=== PATIENT | male | born 1955 | race Caucasian/White ===

== ENCOUNTER 2016-03-19 10:01 | Emergency (ER) | payer MEDICARE, OTHER ==
[~2016-03-19] VITALS: Ht 188 cm; Wt 90.7 kg
[~2016-03-19 10:01] MED LIST: GEMF600T3; LISI10TA6; MECL-87 PO; METF-316; OME20GT; SIMVPOW2; WARF5INJ IV
[2016-03-19] MEDS ORDERED: SODIUM CHLORIDE 0.9% 1,000 ML IV ONE (11:00)
[2016-03-19 11:29] LABS: Urine Bilirubin Negative (Negative); Urine Blood Negative /uL (Negative); Urine Color Yellow (Yellow); Urine Ketone Negative (Negative); Urine Nitrite Negative (Negative); Urine RBC 1 /hpf (0 - 3); Urine Squamous Epithelial Cell FEW /hpf (<5); Urine Urobilinogen Normal (Negative)
[2016-03-19 11:31] LABS: Urine Glucose 2+ mg/dL (Normal)
[2016-03-19 11:42] LABS: Basophils # (auto) 0 uL; Basophils % (auto) 0.5 % (0.0-2.0); DEFINITIVE VIEW TRANSMISSION; Eosinophils # (auto) 0.1 uL
[2016-03-19 12:10] LABS: Albumin 3.6 g/dL (3.4-5.0); BUN/Creatinine Ratio 21.8; Bilirubin, Total 0.5 mg/dL (0.2-1.0); Calcium 8.5 mg/dL (8.5-10.1); Magnesium 1.8 mg/dL (1.6-2.6); Potassium 3.8 mmol/L (3.5-5.1); Total Protein 7.5 g/dL (6.4-8.2)
[2016-03-19 12:21] LABS: Eosinophils % (auto) 0.5 % (0.0-7.0); Hematocrit 37.2 % (41.0-53.0); Hemoglobin 11.1 g/dL (13.5-17.5); Lymphocytes % (auto) 20.6 % (10.0-50.0); Mean Corpuscular Hemoglobin 19.8 pg (28.0-32.0); Mean Platelet Volume 7.6 fL (7.4-10.4); Monocytes # (auto) 0.7 uL; Monocytes % (auto) 7.2 % (0.0-12.0); Neutrophils % (auto) 71.2 % (37.0-80.0); Platelet Count (auto) 272 10^3/uL (140-450); Red Cell Distribution Width 18.3 % (11.6-16.0); White Blood Cell 9.8 10^3/uL (4.4-10.8)
[2016-03-19 12:25] LABS: Partial Thromboplastin Time 34.1 sec (22.64-33.71)
[2016-03-19 13:03] LABS: INR 2.03 (0.9-1.15); Prothrombin Time 20.9 sec (9.37-12.3)
[2016-03-19 13:24] VITALS: BP 100/59
[2016-03-19 13:41] LABS: B-Type Natriuretic Peptide 47.44 pg/mL (0-100)
[2016-03-19 14:00] LABS: Temperature: 22.7 C (20.0-25.0)
[2016-03-19 14:06] LABS: Anisocytosis Moderate; Hypochromia Marked; Microcytosis Marked; Platelet Estimate Adequate
[2016-03-19 14:07] LABS: Burr Cells FEW; Ovalocytes MODERATE
== END 2016-03-19 13:38 | disposition home or self-care (01) ==
LOC: EDBD 10:01 → ER 10:08
DX: E86.0 Dehydration (principal); D53.9 Nutritional anemia, unspecified; G47.00 Insomnia, unspecified; E11.40 Type 2 diabetes mellitus with diabetic neuropathy, unspecified; E78.00 Pure hypercholesterolemia, unspecified; E78.5 Hyperlipidemia, unspecified; J45.909 Unspecified asthma, uncomplicated; I10 Essential (primary) hypertension; Z59.0 Homelessness; R40.1 Stupor
CPT/HCPCS: 36415; 70450; 71020; 80053; 81001; 82962; 83735; 83880; 84484; 85025; 85049; 85379; 85610; 85730; 93005; 94761; 96360

== ENCOUNTER 2017-07-25 09:12 | Inpatient (IN) | payer MEDICARE, OTHER ==
[~2017-07-25] VITALS: Ht 188 cm; Wt 85.2 kg
[~2017-07-25 09:12] MED LIST changes: -METF-316; +METF-372
[2017-07-25] MEDS ORDERED: SODIUM CHLORIDE 0.9% 500 ML IVB ONE (09:38)
[2017-07-25 10:35] LABS: Eosinophils # (auto) 0.1 uL; Hemoglobin 8.8 g/dL (13.5-17.5); Lymphocytes % (auto) 9.6 % (10.0-50.0); Neutrophils # (auto) 9.6 uL
[2017-07-25 10:36] LABS: Basophils # (auto) 0.2 uL; Basophils % (auto) 1.4 % (0.0-2.0); Hematocrit 29.1 % (41.0-53.0); Lymphocytes # (auto) 1.2 uL; Mean Corpuscular Hemoglobin 17.7 pg (28.0-32.0); Mean Corpuscular Hgb Conc. 30.2 g/dL (32.0-36.0); Mean Corpuscular Volume 58.7 fL (80.0-100.0); Monocytes % (auto) 8.1 % (0.0-12.0); Neutrophils % (auto) 79.9 % (37.0-80.0); Platelet Count (auto) 411 10^3/uL (140-450); Red Blood Cells 4.96 10^6/uL (4.5-5.90)
[2017-07-25 10:38] LABS: Red Cell Distribution Width 20.6 % (11.8-14.3)
[2017-07-25 10:57] LABS: Albumin 3.1 g/dL (3.4-5.0); BUN/Creatinine Ratio 15.2; Bilirubin, Total 0.3 mg/dL (0.2-1.0); Calcium 8.3 mg/dL (8.5-10.1); Magnesium 1.4 mg/dL (1.6-2.6); Potassium 3.8 mmol/L (3.5-5.1); Total Protein 7.8 g/dL (6.4-8.2)
[2017-07-25 12:47] LABS: Urine Bacteria NONE SEEN /hpf (None Seen); Urine Blood Negative /uL (Negative); Urine Specific Gravity 1.015 (1.001-1.035); Urine WBC 1 /hpf (0 - 3)
[2017-07-25] MEDS ORDERED: cefTRIAXone 1GM/10ml IVPUSH 10 ML IV ONE (13:00)
[2017-07-25] MEDS ORDERED: SODIUM CHLORIDE 0.9% 1,000 ML IV ONE (13:15)
[2017-07-25] MEDS ORDERED: DEXTROSE (50%) 50ML SYRG IV PRN (13:15)
[2017-07-25] MEDS ORDERED: MAGNESIUM SULFATE 1GM/100ML 100 ML IV ONE (13:15)
[2017-07-25] MEDS ORDERED: MECLIZINE HCL 25 MG TAB PO PRN (13:15)
[2017-07-25] MEDS ORDERED: SODIUM CHLORIDE 0.9% 1,000 ML IV SCH (13:16)
[2017-07-25] MEDS ORDERED: FAMOTIDINE 20 MG TAB PO ONE (13:30)
[2017-07-25] MEDS ORDERED: ASCORBIC ACID 500 MG TAB PO ONE (13:30)
[2017-07-25] MEDS ORDERED: ONDANSETRON HCL 4 MG/2 ML VIAL IV PRN (13:30)
[2017-07-25] MEDS ORDERED: PANTOPRAZOLE 40 MG TAB PO ONE (13:30)
[2017-07-25] MEDS ORDERED: LISINOPRIL 10 MG TAB PO ONE (13:30)
[2017-07-25] MEDS ORDERED: MULTIPLE VITAMIN TAB PO ONE (13:30)
[2017-07-25] MEDS ORDERED: DOCUSATE SOD 100 MG CAP PO PRN (13:30)
[2017-07-25] MEDS ORDERED: NITROGLYCERIN 0.4 MG SL TAB SL PRN (13:30)
[2017-07-25] MEDS ORDERED: MORPHINE SULFATE 8mg/ml INJ SDV IV PRN ×2 (13:30)
[2017-07-25 13:51] LABS: INR 1.02 (0.9-1.15); Partial Thromboplastin Time 30.5 sec (23.78-33.04); Prothrombin Time 10.9 sec (9.27-12.13)
[2017-07-25] MEDS: CLINDAMYCIN 300MG IV 50 ML IV SCH ×2 (14:05→21:31)
[2017-07-25] MEDS: SODIUM CHLORIDE 0.9% 1,000 ML IV SCH (15:25)
[2017-07-25] MEDS: ACETAMINOPHEN 325 MG TAB PO PRN ×2 (15:25→19:45)
[2017-07-25] MEDS ORDERED: EPOETIN ALFA 10,000 UNIT/1 ML VIAL SC ONE (16:30)
[2017-07-25 16:50] VITALS: BP_SYST 109; BP_SYST 128; BP_DIAS 69; BP_DIAS 71
[2017-07-25] MEDS: InsuLIN REG 1unit/0.01ml Soln (100units/ml) SC SCH ×2 (17:45→22:04)
[2017-07-25] MEDS: ACCU-CHEK COMFORT CURVE STRIP VI SCH ×2 (17:46→21:40)
[2017-07-25] MEDS: FERROUS SULFATE 325 MG TAB PO SCH (18:05)
[2017-07-25 18:06] LABS: % Iron Saturation 4.2 % (20-55)
[2017-07-25] MEDS: Boost Glucose Control 8 Ounces PO SCH (18:06)
[2017-07-25] MEDS: FAMOTIDINE 20 MG TAB PO SCH (21:29)
[2017-07-25] MEDS: ATORVASTATIN 20 MG TAB PO SCH (21:30)
[2017-07-25] MEDS: ASCORBIC ACID 500 MG TAB PO SCH (21:40)
[2017-07-25 21:46] VITALS: BP 123/66
[2017-07-26] MEDS: SODIUM CHLORIDE 0.9% 1,000 ML IV SCH ×2 (00:59→22:35)
[2017-07-26 05:42] VITALS: BP 117/71
[2017-07-26] MEDS: CLINDAMYCIN 300MG IV 50 ML IV SCH ×3 (06:06→22:34)
[2017-07-26] MEDS: ACCU-CHEK COMFORT CURVE STRIP VI SCH ×4 (06:06→22:35)
[2017-07-26] MEDS: InsuLIN REG 1unit/0.01ml Soln (100units/ml) SC SCH ×4 (06:12→22:35)
[2017-07-26 07:10] LABS: Basophils # (auto) 0.2 uL; Eosinophils # (auto) 0.2 uL; Hemoglobin 8.5 g/dL (13.5-17.5); Lymphocytes # (auto) 1.2 uL; Mean Corpuscular Hemoglobin 18.3 pg (28.0-32.0); Monocytes # (auto) 0.5 uL; Neutrophils % (auto) 73.1 % (37.0-80.0)
[2017-07-26 07:12] LABS: Basophils % (auto) 2.3 % (0.0-2.0); Eosinophils % (auto) 2.3 % (0.0-7.0); Hematocrit 27.4 % (41.0-53.0); Lymphocytes % (auto) 15.2 % (10.0-50.0); Mean Corpuscular Hgb Conc. 31.1 g/dL (32.0-36.0); Mean Corpuscular Volume 58.9 fL (80.0-100.0); Monocytes % (auto) 7.1 % (0.0-12.0); Neutrophils # (auto) 5.6 uL; Platelet Count (auto) 384 10^3/uL (140-450); Red Blood Cells 4.65 10^6/uL (4.5-5.90); Red Cell Distribution Width 20.6 % (11.8-14.3); White Blood Cell 7.6 10^3/uL (4.4-10.8)
[2017-07-26 07:26] LABS: INR 1.03 (0.9-1.15); Partial Thromboplastin Time 30.1 sec (23.78-33.04)
[2017-07-26 07:32] LABS: Albumin 2.9 g/dL (3.4-5.0); BUN/Creatinine Ratio 10.6; Bilirubin, Total 0.4 mg/dL (0.2-1.0); Calcium 8.4 mg/dL (8.5-10.1); Potassium 3.6 mmol/L (3.5-5.1); Total Protein 7.3 g/dL (6.4-8.2)
[2017-07-26 08:00] VITALS: BP 155/79
[2017-07-26] MEDS: ZINC SULFATE 220 MG CAP PO SCH (09:54)
[2017-07-26] MEDS: FAMOTIDINE 20 MG TAB PO SCH ×2 (09:54→22:34)
[2017-07-26] MEDS: PANTOPRAZOLE 40 MG TAB PO SCH (09:54)
[2017-07-26] MEDS: FERROUS SULFATE 325 MG TAB PO SCH ×3 (09:54→18:02)
[2017-07-26] MEDS: ASCORBIC ACID 500 MG TAB PO SCH ×2 (09:54→22:35)
[2017-07-26] MEDS: MULTIPLE VITAMIN TAB PO SCH (09:55)
[2017-07-26] MEDS: Boost Glucose Control 8 Ounces PO SCH ×3 (09:58→18:02)
[2017-07-26] MEDS ORDERED: LISINOPRIL 10 MG TAB PO SCH (10:00)
[2017-07-26 11:45] LABS: Free T4 (Free Thyroxine) 1.1 ng/dL (0.89-1.76)
[2017-07-26 12:00] VITALS: BP 153/90
[2017-07-26] MEDS ORDERED: LISINOPRIL 10 MG TAB PO ONE (16:00)
[2017-07-26 17:00] VITALS: BP 123/63
[2017-07-26] MEDS ORDERED: WARFARIN SODIUM 5 MG TAB PO ONE (17:00)
[2017-07-26] MEDS: cefTRIAXone 1GM/10ml IVPUSH 10 ML IV SCH (17:39)
[2017-07-26] MEDS: ACETAMINOPHEN 325 MG TAB PO PRN (17:55)
[2017-07-26 21:58] VITALS: BP 120/64
[2017-07-26] MEDS: ATORVASTATIN 20 MG TAB PO SCH (22:34)
[2017-07-27] MEDS: ACETAMINOPHEN 325 MG TAB PO PRN ×2 (00:35→21:30)
[2017-07-27 05:00] VITALS: BP 130/89
[2017-07-27] MEDS: ACCU-CHEK COMFORT CURVE STRIP VI SCH ×4 (06:27→21:31)
[2017-07-27] MEDS: CLINDAMYCIN 300MG IV 50 ML IV SCH ×3 (06:27→21:29)
[2017-07-27] MEDS: InsuLIN REG 1unit/0.01ml Soln (100units/ml) SC SCH ×4 (06:27→21:46)
[2017-07-27 06:28] LABS: Basophils # (auto) 0.1 uL; Eosinophils # (auto) 0.2 uL; Lymphocytes # (auto) 1.5 uL; Monocytes # (auto) 0.6 uL; Nucleated Red Blood Cells % 0.1 %
[2017-07-27 06:29] LABS: Basophils % (auto) 1.2 % (0.0-2.0); Eosinophils % (auto) 2.9 % (0.0-7.0); Hemoglobin 8.7 g/dL (13.5-17.5); Mean Corpuscular Hemoglobin 18.3 pg (28.0-32.0); Monocytes % (auto) 7.8 % (0.0-12.0); Neutrophils % (auto) 68.1 % (37.0-80.0); Platelet Count (auto) 406 10^3/uL (140-450); Red Blood Cells 4.74 10^6/uL (4.5-5.90); White Blood Cell 7.3 10^3/uL (4.4-10.8)
[2017-07-27 06:33] LABS: Red Cell Distribution Width 20.5 % (11.8-14.3)
[2017-07-27 06:38] LABS: INR 1.07 (0.9-1.15); Prothrombin Time 11.4 sec (9.27-12.13)
[2017-07-27 06:51] LABS: Albumin 2.9 g/dL (3.4-5.0); BUN/Creatinine Ratio 7.8; Bilirubin, Total 0.3 mg/dL (0.2-1.0); Calcium 8.7 mg/dL (8.5-10.1); Magnesium 1.7 mg/dL (1.6-2.6); Potassium 3.6 mmol/L (3.5-5.1); Total Protein 7.2 g/dL (6.4-8.2)
[2017-07-27 08:00] VITALS: BP 133/72
[2017-07-27] MEDS: Boost Glucose Control 8 Ounces PO SCH ×3 (08:00→18:00)
[2017-07-27] MEDS: FERROUS SULFATE 325 MG TAB PO SCH ×3 (08:21→17:46)
[2017-07-27] MEDS: FAMOTIDINE 20 MG TAB PO SCH ×2 (10:40→21:30)
[2017-07-27] MEDS: ASCORBIC ACID 500 MG TAB PO SCH ×2 (10:40→21:30)
[2017-07-27] MEDS: ZINC SULFATE 220 MG CAP PO SCH (10:40)
[2017-07-27] MEDS: MULTIPLE VITAMIN TAB PO SCH (10:40)
[2017-07-27] MEDS: cefTRIAXone 1GM/10ml IVPUSH 10 ML IV SCH (10:40)
[2017-07-27] MEDS: PANTOPRAZOLE 40 MG TAB PO SCH (10:40)
[2017-07-27] MEDS: LISINOPRIL 20 MG TAB PO SCH (10:41)
[2017-07-27 13:00] VITALS: BP 138/83
[2017-07-27] MEDS ORDERED: MAGNESIUM SULFATE 1GM/100ML 100 ML IV ONE (14:00)
[2017-07-27] MEDS ORDERED: GOLYTELY 4L KIT PO ONE (14:15)
[2017-07-27] MEDS: SODIUM CHLORIDE 0.9% 1,000 ML IV SCH (14:34)
[2017-07-27] MEDS ORDERED: WARFARIN SODIUM 5 MG TAB PO ONE (17:00)
[2017-07-27 17:02] VITALS: BP 161/88
[2017-07-27] MEDS: HYDROcodone-ACET 5/325MG TAB PO PRN (19:36)
[2017-07-27] MEDS: ATORVASTATIN 20 MG TAB PO SCH (21:30)
[2017-07-27 22:00] VITALS: BP 140/72
[2017-07-27] MEDS: TEMAZEPAM 15 MG CAP PO PRN (23:30)
[2017-07-28 05:00] VITALS: BP 134/71
[2017-07-28] MEDS ORDERED: GOLYTELY 4L KIT PO ONE (06:00)
[2017-07-28] MEDS: CLINDAMYCIN 300MG IV 50 ML IV SCH (06:22)
[2017-07-28 06:27] LABS: Hemoglobin 8.3 g/dL (13.5-17.5)
[2017-07-28 06:31] LABS: Hematocrit 26.8 % (41.0-53.0)
[2017-07-28 06:37] LABS: INR 1.07 (0.9-1.15); Prothrombin Time 11.4 sec (9.27-12.13)
[2017-07-28 06:40] LABS: Albumin 2.8 g/dL (3.4-5.0); Calcium 8.5 mg/dL (8.5-10.1); Potassium 3.4 mmol/L (3.5-5.1)
[2017-07-28 06:44] LABS: BUN/Creatinine Ratio 12.4; Bilirubin, Total 0.3 mg/dL (0.2-1.0); Total Protein 6.9 g/dL (6.4-8.2)
[2017-07-28] MEDS: InsuLIN REG 1unit/0.01ml Soln (100units/ml) SC SCH ×4 (07:00→22:24)
[2017-07-28] MEDS: ACCU-CHEK COMFORT CURVE STRIP VI SCH ×4 (07:00→22:13)
[2017-07-28 08:00] VITALS: BP 146/87
[2017-07-28] MEDS: FERROUS SULFATE 325 MG TAB PO SCH ×3 (08:00→17:42)
[2017-07-28] MEDS: Boost Glucose Control 8 Ounces PO SCH ×3 (08:00→18:00)
[2017-07-28] MEDS: SODIUM CHLORIDE 0.9% 1,000 ML IV SCH (08:15)
[2017-07-28 09:00] VITALS: BP 146/87
[2017-07-28] MEDS: LISINOPRIL 20 MG TAB PO SCH (10:00)
[2017-07-28] MEDS: PANTOPRAZOLE 40 MG TAB PO SCH (10:00)
[2017-07-28] MEDS: ZINC SULFATE 220 MG CAP PO SCH (10:00)
[2017-07-28] MEDS: MULTIPLE VITAMIN TAB PO SCH (10:00)
[2017-07-28] MEDS: ASCORBIC ACID 500 MG TAB PO SCH ×2 (10:00→22:12)
[2017-07-28] MEDS: FAMOTIDINE 20 MG TAB PO SCH ×2 (10:00→22:11)
[2017-07-28] MEDS ORDERED: POTASSIUM CHL 20 Meq TABLET PO ONE (10:45)
[2017-07-28] MEDS: cefTRIAXone 1GM/10ml IVPUSH 10 ML IV SCH (11:26)
[2017-07-28] MEDS ORDERED: LIDOCAINE VISCOUS 2% 15ML UD ONE (12:22)
[2017-07-28] MEDS ORDERED: SODIUM CHLORIDE LOCK 10 ML ONE (12:22)
[2017-07-28] MEDS ORDERED: diphenhdrAMINE HCL 50 MG/1 ML VL ONE (12:23)
[2017-07-28] MEDS: fentaNYL CITRATE 100 MCG/2 ML VL ONE ×2 (12:23→12:28)
[2017-07-28] MEDS: MIDAZOLAM HCL 5 MG/ML-1ML VIAL ONE ×2 (12:23→12:28)
[2017-07-28 12:30] VITALS: BP 139/67
[2017-07-28] MEDS: CLINDAMYCIN 600MG IV 50 ML IV SCH ×2 (14:58→22:11)
[2017-07-28] MEDS ORDERED: WARFARIN SODIUM 2.5 MG TAB PO ONE (17:00)
[2017-07-28 17:09] VITALS: BP 126/79
[2017-07-28 22:04] VITALS: BP 135/77
[2017-07-28] MEDS: ATORVASTATIN 20 MG TAB PO SCH (22:12)
[2017-07-29] MEDS: SODIUM CHLORIDE 0.9% 1,000 ML IV SCH (04:42)
[2017-07-29 04:52] VITALS: BP 140/80
[2017-07-29] MEDS: HYDROcodone-ACET 5/325MG TAB PO PRN (05:20)
[2017-07-29] MEDS: ACCU-CHEK COMFORT CURVE STRIP VI SCH ×4 (05:59→21:00)
[2017-07-29] MEDS: CLINDAMYCIN 600MG IV 50 ML IV SCH ×3 (05:59→20:58)
[2017-07-29] MEDS: InsuLIN REG 1unit/0.01ml Soln (100units/ml) SC SCH ×4 (05:59→21:07)
[2017-07-29 07:32] LABS: INR 1.16 (0.9-1.15); Partial Thromboplastin Time 28.7 sec (23.78-33.04); Prothrombin Time 12.3 sec (9.27-12.13)
[2017-07-29 08:00] VITALS: BP 127/81
[2017-07-29] MEDS: Boost Glucose Control 8 Ounces PO SCH ×3 (08:00→18:00)
[2017-07-29 08:30] VITALS: BP 127/81
[2017-07-29] MEDS: ZINC SULFATE 220 MG CAP PO SCH (11:47)
[2017-07-29] MEDS: ASCORBIC ACID 500 MG TAB PO SCH ×2 (11:47→20:58)
[2017-07-29] MEDS: MULTIPLE VITAMIN TAB PO SCH (11:47)
[2017-07-29] MEDS: FAMOTIDINE 20 MG TAB PO SCH ×2 (11:47→21:00)
[2017-07-29] MEDS: PANTOPRAZOLE 40 MG TAB PO SCH (11:47)
[2017-07-29] MEDS: FERROUS SULFATE 325 MG TAB PO SCH ×3 (11:47→19:00)
[2017-07-29] MEDS: LISINOPRIL 20 MG TAB PO SCH (11:57)
[2017-07-29 12:02] VITALS: BP 184/78
[2017-07-29] MEDS ORDERED: WARFARIN SODIUM 10 MG TAB PO ONE (17:00)
[2017-07-29] MEDS ORDERED: GLIP-116 PO (17:02)
[2017-07-29] MEDS ORDERED: WARF5TAB71 PO (17:02)
[2017-07-29] MEDS ORDERED: DULO60CA PO (17:02)
[2017-07-29] MEDS ORDERED: MULT-228 PO (17:02)
[2017-07-29] MEDS ORDERED: GABA300C10 PO (17:02)
[2017-07-29] MEDS ORDERED: ACET1CAP14 PO (17:02)
[2017-07-29] MEDS ORDERED: TAMS0.4C36 PO (17:02)
[2017-07-29] MEDS ORDERED: METO25TA5 PO (17:02)
[2017-07-29] MEDS ORDERED: LISI-275 PO (17:02)
[2017-07-29 17:06] VITALS: BP 136/67
[2017-07-29] MEDS: ACETAMINOPHEN 325 MG TAB PO PRN (20:59)
[2017-07-29] MEDS: ATORVASTATIN 20 MG TAB PO SCH (20:59)
[2017-07-29 22:00] VITALS: BP 134/80
[2017-07-29] MEDS: TEMAZEPAM 15 MG CAP PO PRN (23:29)
[2017-07-30] MEDS: SODIUM CHLORIDE 0.9% 1,000 ML IV SCH (00:01)
[2017-07-30 05:00] VITALS: BP 126/82
[2017-07-30] MEDS: HYDROcodone-ACET 5/325MG TAB PO PRN (05:14)
[2017-07-30] MEDS: ACCU-CHEK COMFORT CURVE STRIP VI SCH ×2 (06:03→12:02)
[2017-07-30] MEDS: CLINDAMYCIN 600MG IV 50 ML IV SCH (06:03)
[2017-07-30] MEDS: InsuLIN REG 1unit/0.01ml Soln (100units/ml) SC SCH ×2 (06:04→12:03)
[2017-07-30 06:17] LABS: INR 1.31 (0.9-1.15); Partial Thromboplastin Time 29.9 sec (23.78-33.04); Prothrombin Time 13.8 sec (9.27-12.13)
[2017-07-30 06:23] LABS: Potassium 3.7 mmol/L (3.5-5.1)
[2017-07-30 06:25] LABS: BUN/Creatinine Ratio 15.2; Calcium 8.8 mg/dL (8.5-10.1); Magnesium 1.8 mg/dL (1.6-2.6)
[2017-07-30 08:00] VITALS: BP 130/77
[2017-07-30] MEDS: Boost Glucose Control 8 Ounces PO SCH ×2 (08:00→12:01)
[2017-07-30 08:13] VITALS: BP 130/77
[2017-07-30] MEDS: FERROUS SULFATE 325 MG TAB PO SCH ×2 (09:10→12:00)
[2017-07-30] MEDS: PANTOPRAZOLE 40 MG TAB PO SCH (09:11)
[2017-07-30] MEDS: FAMOTIDINE 20 MG TAB PO SCH (09:11)
[2017-07-30] MEDS: MULTIPLE VITAMIN TAB PO SCH (09:11)
[2017-07-30] MEDS: ZINC SULFATE 220 MG CAP PO SCH (09:11)
[2017-07-30] MEDS: ASCORBIC ACID 500 MG TAB PO SCH (09:11)
[2017-07-30] MEDS: LISINOPRIL 20 MG TAB PO SCH (09:12)
[2017-07-30] MEDS ORDERED: IODIXANOL 320MG/ML 100ML BTL IV ONE (10:23)
[2017-07-30] MEDS ORDERED: LIDOCAINE 2%HCL (LOCAL ANESTH.) INJ 20ML MDV ONE (10:23)
[2017-07-30] MEDS ORDERED: FER325T PO (11:01)
[2017-07-30] MEDS ORDERED: CLIN1CAP4 PO (11:01)
[2017-07-30] MEDS ORDERED: SACC250C PO (11:01)
[2017-07-30] MEDS ORDERED: WARFARIN SODIUM 5 MG TAB PO ONE (17:00)
== END 2017-07-30 13:08 | disposition home health service (06) | DRG 872 ==
LOC: EDBD 09:12 → ER 09:12 → TELE 09:13 → TELE-CENTR 14:40
PROVIDERS: ADMIT Internal Medicine; ATTEND Internal Medicine
PROC: 0DB68ZX Excision of Stomach, Via Natural or Artificial Opening Endoscopic, Diagnostic (ICD-10-PCS; 2017-07-28)
PROC: 0DB48ZX Excision of Esophagogastric Junction, Via Natural or Artificial Opening Endoscopic, Diagnostic (ICD-10-PCS; principal; 2017-07-28 12:21)
DX: A41.9 Sepsis, unspecified organism (principal); E11.21 Type 2 diabetes mellitus with diabetic nephropathy; E11.42 Type 2 diabetes mellitus with diabetic polyneuropathy; E44.0 Moderate protein-calorie malnutrition; N13.2 Hydronephrosis with renal and ureteral calculous obstruction; E83.42 Hypomagnesemia; D50.9 Iron deficiency anemia, unspecified; E11.22 Type 2 diabetes mellitus with diabetic chronic kidney disease; E11.621 Type 2 diabetes mellitus with foot ulcer; E78.5 Hyperlipidemia, unspecified; E83.51 Hypocalcemia; I12.9 Hypertensive chronic kidney disease with stage 1 through stage 4 chronic kidney disease, or unspecified chronic kidney disease; K31.7 Polyp of stomach and duodenum; K40.20 Bilateral inguinal hernia, without obstruction or gangrene, not specified as recurrent; L97.519 Non-pressure chronic ulcer of other part of right foot with unspecified severity; M19.012 Primary osteoarthritis, left shoulder; N18.2 Chronic kidney disease, stage 2 (mild); Z59.0 Homelessness; Z79.01 Long term (current) use of anticoagulants; Z79.899 Other long term (current) drug therapy; Z80.1 Family history of malignant neoplasm of trachea, bronchus and lung; Z82.49 Family history of ischemic heart disease and other diseases of the circulatory system; Z82.5 Family history of asthma and other chronic lower respiratory diseases; Z83.3 Family history of diabetes mellitus; Z85.038 Personal history of other malignant neoplasm of large intestine; Z86.010 Personal history of colon polyps; Z86.14 Personal history of Methicillin resistant Staphylococcus aureus infection; Z89.431 Acquired absence of right foot; Z89.421 Acquired absence of other right toe(s); Z93.3 Colostomy status; Z93.6 Other artificial openings of urinary tract status; Z95.2 Presence of prosthetic heart valve; Z88.0 Allergy status to penicillin; Z68.24 Body mass index [BMI] 24.0-24.9, adult
CPT/HCPCS: 36415; 71046; 73200; 73630; 74176; 78315; 80048; 80053; 80061; 81001; 82150; 82607; 82668; 82728; 82962; 83010; 83036; 83540; 83550; 83605; 83615; 83690; 83735; 84439; 84443; 85014; 85018; 85025; 85045; 85610; 85652; 85730; 86225; 86235; 86850; 86870; 86880; 86885; 86900; 86901; 86905; 86906; 86971; 87040; 87077; 87081; 87186; 87205; 93005; 93306; 93926; 94761; 96374; 97163; J0885; J1815; J2250; J3490; Q9967

== ENCOUNTER 2017-09-30 18:19 | Emergency (ER) | payer MEDICARE, OTHER ==
[~2017-09-30] VITALS: Ht 15.2 cm; Wt 6.0 kg
[~2017-09-30 18:19] MED LIST changes: +ACET1CAP14 PO; +CLIN1CAP4 PO; +DULO60CA PO; +FER325T PO; +GABA300C10 PO; -GEMF600T3; +GLIP-116 PO; +LISI-275 PO; -LISI10TA6; -MECL-87 PO; -METF-372; +METO25TA5 PO; +MULT-228 PO; -OME20GT; +SACC250C PO; -SIMVPOW2; +TAMS0.4C36 PO; -WARF5INJ IV; +WARF5TAB71 PO
[2017-09-30 18:23] VITALS: BP 150/62
== END 2017-10-01 02:23 | disposition left against medical advice (07) ==
LOC: ER 18:19 → EDBD 18:19 → ER 10-01 02:23
DX: M79.604 Pain in right leg (principal); Z53.21 Procedure and treatment not carried out due to patient leaving prior to being seen by health care provider

== ENCOUNTER 2017-11-08 19:49 | Emergency (ER) | payer MEDICARE, OTHER ==
[~2017-11-08] VITALS: Ht 182.9 cm; Wt 83.9 kg
[2017-11-08 20:56] LABS: Basophils # (auto) 0.1 uL; Hemoglobin 12.4 g/dL (13.5-17.5); Mean Corpuscular Hgb Conc. 31.8 g/dL (32.0-36.0); Monocytes # (auto) 0.6 uL; Nucleated Red Blood Cells % 0.1 %; Platelet Count (auto) 190 10^3/uL (140-450); Red Blood Cells 5.62 10^6/uL (4.5-5.90)
[2017-11-08 20:57] LABS: Basophils % (auto) 0.9 % (0.0-2.0); Eosinophils # (auto) 0.2 uL; Eosinophils % (auto) 1.8 % (0.0-7.0); Hematocrit 38.9 % (41.0-53.0); Lymphocytes # (auto) 1.8 uL; Lymphocytes % (auto) 21.3 % (10.0-50.0); Mean Corpuscular Volume 69.3 fL (80.0-100.0); Monocytes % (auto) 7.4 % (0.0-12.0); Neutrophils # (auto) 5.7 uL; Neutrophils % (auto) 68.6 % (37.0-80.0); Red Cell Distribution Width 18.8 % (11.8-14.3); White Blood Cell 8.3 10^3/uL (4.4-10.8)
[2017-11-08 21:14] LABS: INR 1.23 (0.9-1.15); Partial Thromboplastin Time 28.5 sec (23.78-33.04)
[2017-11-08 21:20] LABS: Alanine Aminotransferase 24 U/L (16-61); Albumin 3.9 g/dL (3.4-5.0); Alkaline Phosphatase 89 U/L (45-117); Anion Gap 0 (5-15); Aspartate Aminotransferase 18 U/L (15-37); BUN/Creatinine Ratio 15.6; Bilirubin, Total 0.4 mg/dL (0.2-1.0); Blood Alcohol < 3.0 mg/dL (0-5); Blood Urea Nitrogen 19 mg/dL (7-18); Calcium 8.6 mg/dL (8.5-10.1); Carbon Dioxide 29 mmol/L (21-32); Chloride 107 mmol/L (98-107); GFR African American 78 mL/min; GFR Non-African American 64 mL/min; Glucose 209 mg/dL (74-106); Magnesium 1.8 mg/dL (1.6-2.6); Potassium 3.5 mmol/L (3.5-5.1); Sodium 136 mmol/L (136-145); Total Protein 7.8 g/dL (6.4-8.2)
[2017-11-09 00:41] LABS: Urine Bacteria NONE SEEN /hpf (None Seen); Urine Blood Negative /uL (Negative); Urine Specific Gravity 1.025 (1.001-1.035); Urine WBC 1 /hpf (0 - 3)
[2017-11-09 00:52] LABS: Alcohol, Urine < 3.0 mg/dL (0-5); Amphetamine Screen, Urine NEGATIVE (NEGATIVE); Barbiturate Scree,Urine NEGATIVE (NEGATIVE); Benzodiazephine Screen, Urine NEGATIVE (NEGATIVE); Cannabinoid Screen, Urine NEGATIVE (NEGATIVE); Cocaine Screen, Urine NEGATIVE (NEGATIVE); Opiate Scree,Urine NEGATIVE (NEGATIVE); Phencyclidine Screen, Urine NEGATIVE (NEGATIVE)
[2017-11-09 03:18] VITALS: BP 163/92
== END 2017-11-09 04:06 | disposition home or self-care (01) ==
LOC: ER 19:49
DX: R41.3 Other amnesia (principal); I10 Essential (primary) hypertension; E78.5 Hyperlipidemia, unspecified
CPT/HCPCS: 36415; 70450; 71045; 80053; 80307; 80320; 81001; 82962; 83735; 84484; 85025; 85610; 85730; 93005

== ENCOUNTER 2018-04-07 17:52 | Inpatient (IN) | payer MEDICARE, OTHER | END 2018-04-15 14:07 | LOC: TELE 04-08 02:37 → TELE-EAST 04-11 01:12 → ER 17:52 → TELE-EAST 04-08 18:11 | DX: R07.9 Chest pain, unspecified (principal); N17.0 Acute kidney failure with tubular necrosis; I10 Essential (primary) hypertension; I25.10 Atherosclerotic heart disease of native coronary artery without angina pectoris; E11.65 Type 2 diabetes mellitus with hyperglycemia; E66.9 Obesity, unspecified; E11.21 Type 2 diabetes mellitus with diabetic nephropathy; G62.9 Polyneuropathy, unspecified; E11.51 Type 2 diabetes mellitus with diabetic peripheral angiopathy without gangrene; Z95.2 Presence of prosthetic heart valve; R94.39 Abnormal result of other cardiovascular function study; E78.5 Hyperlipidemia, unspecified ==